=== PATIENT | male | born 1950 | race Hispanic/Latino ===

== ENCOUNTER 2018-09-28 21:57 | Emergency (ER) | payer MEDICARE ==
[~2018-09-28 21:57] MED LIST: FINA5TAB41 PO; METO50TA18 PO; TAMS-1 PO
[2018-09-28] MEDS ORDERED: HYDROCODONE/ACETAMINOPHEN 10/325 MG TAB ONE (22:42)
== END 2018-09-28 22:47 | disposition home or self-care (01) ==
LOC: EDH 21:57
DX: B00.0 Eczema herpeticum (principal); I10 Essential (primary) hypertension; E78.5 Hyperlipidemia, unspecified; Z90.49 Acquired absence of other specified parts of digestive tract